=== PATIENT | male | born 1960 | race African-American/Black ===

== ENCOUNTER → 2017-10-17 | Outpatient (CLI) | payer OTHER ==
[~2017-10-17] VITALS: Ht 172.7 cm; Wt 112.2 kg
[~2017-10-17] MED LIST: ALPR0.255 PO; AMLO-512 PO; ASPI81TA33 PO; CARV6.2579 PO; CLOP75 PO; FLUO-191 PO; FURO40SO4 PO; PANT40TA25 PO; POTA8TAB4 PO; RANO500T3 PO
[2017-10-17 14:46] VITALS: BP 135/88
== END | disposition home or self-care (01) ==
LOC: SRCNTR 14:27
PROVIDERS: ATTEND Internal Medicine Clinical Cardiac Electrophysiology
DX: I11.0 Hypertensive heart disease with heart failure (principal); I50.9 Heart failure, unspecified; I25.10 Atherosclerotic heart disease of native coronary artery without angina pectoris; G89.4 Chronic pain syndrome; E78.00 Pure hypercholesterolemia, unspecified; Z79.82 Long term (current) use of aspirin; Z95.810 Presence of automatic (implantable) cardiac defibrillator
CPT/HCPCS: G0463

== ENCOUNTER → 2017-12-12 | Outpatient (CLI) | payer OTHER ==
[~2017-12-12] VITALS: Ht 172.7 cm; Wt 112.5 kg
[2017-12-12 14:18] VITALS: BP 116/73
== END | disposition home or self-care (01) ==
LOC: SRCNTR 14:09
PROVIDERS: ATTEND Internal Medicine Clinical Cardiac Electrophysiology
DX: Z45.018 Encounter for adjustment and management of other part of cardiac pacemaker (principal)
CPT/HCPCS: 93288; G0463

== ENCOUNTER 2018-03-15 10:11 | Day surgery (SDC) | payer OTHER ==
[~2018-03-15] VITALS: Ht 172.7 cm; Wt 114.5 kg
[~2018-03-15 10:11] MED LIST changes: -ASPI81TA33 PO; +ASPI81TA87 PO; +SODIUM CHLORIDE 0.9% 1,000 ML IV ONE
[2018-03-15] MEDS ORDERED: FentaNYL CITRATE-PF 100 MCG/2 ML VIAL IVP ONE (10:12)
[2018-03-15] MEDS ORDERED: MIDAZOLAM HCL 2 MG/2 ML VIAL IVP ONE (10:12)
[2018-03-15] MEDS ORDERED: CLINDAMYCIN PHOS 150 MG/ML 4 ML VIAL ONE (11:01)
[2018-03-15] MEDS ORDERED: SODIUM CHLORIDE 0.9% 100 ML ONE (11:01)
[2018-03-15] MEDS ORDERED: PROPOFOL 1000 MG/ISO-OSM 200 ML IV ONE (11:01)
[2018-03-15 11:05] LABS: ANION GAP 9 mmol/L (8-16); CALCIUM, TOTAL 8.8 mg/dL (8.8-10.5); CARBON DIOXIDE 28 mmol/L (22-29); CHLORIDE 103 mmol/L (98-107); CREATININE 1.05 mg/dL (0.60-1.30); GLOMERULAR FILTR. RATE CALC > 60 mL/min (>60); GLUCOSE,RANDOM 96 mg/dL (70-110); SODIUM SERUM 140 mmol/L (136-145); UREA NITROGEN, BLOOD 13 mg/dL (7-18)
[2018-03-15] MEDS ORDERED: EZET10 PO (11:16)
[2018-03-15] MEDS ORDERED: MIRT15 PO (11:16)
[2018-03-15] MEDS ORDERED: DULO30CA2 PO (11:16)
[2018-03-15] MEDS ORDERED: AMLO-511 PO (11:16)
[2018-03-15] MEDS ORDERED: HALO10 PO (11:16)
[2018-03-15] MEDS ORDERED: CILO100T PO (11:16)
[2018-03-15] MEDS ORDERED: ATOR40TA28 PO (11:16)
[2018-03-15] MEDS ORDERED: CARV25 PO (11:16)
[2018-03-15] MEDS ORDERED: DOXE10 PO (11:16)
[2018-03-15] MEDS ORDERED: DIPH25TA19 PO (11:16)
[2018-03-15] MEDS ORDERED: TRAZ-147 PO (11:16)
[2018-03-15] MEDS ORDERED: CLOP75 PO (11:16)
[2018-03-15 11:26] LABS: BAND NEUTROPHILS % (MANUAL) 0 % (0-5)
[2018-03-15 11:27] LABS: PROTHROMBIN TIME 10.7 SEC (9.4-11.6)
[2018-03-15] MEDS ORDERED: LIDOCAINE HCL/PF 1% 30 ML VIAL ONE ×2 (11:35→12:46)
[2018-03-15] MEDS ORDERED: SODIUM BICARBONATE 50 MEQ/50 ML VIAL ONE (11:35)
[2018-03-15] MEDS ORDERED: 0.9% SODIUM CHLORIDE 10 ML SYRINGE IVP ONE ×3 (11:35→12:10)
[2018-03-15 11:36] LABS: HEMATOCRIT 42.8 % (41-53); HEMOGLOBIN 14.6 g/dL (13.5-17.5); MEAN CORPUSCULAR HEMOGLOBIN 30.1 pg (26.0-34.0); MEAN CORPUSCULAR HGB CONC 34.2 G/dL (31.0-37.0); MEAN CORPUSCULAR VOLUME 88 fL (80-100); PLATELET COUNT (AUTO) 208 K/uL (150-450); RED BLOOD CELL COUNT(AUTO) 4.86 MIL/uL (4.50-5.90); RED CELL DISTRIBUTION WIDTH 13.1 % (11.5-14.5)
[2018-03-15] MEDS ORDERED: VANCOMYCIN HCL 1 GM/VIAL ONE ×2 (11:36→12:17)
[2018-03-15 11:52] VITALS: BP 120/81
[2018-03-15 12:03] LABS: EOSINOPHILS % (MANUAL) 2 % (1-6); LYMPHOCYTES % (MANUAL) 41 % (22-44); MONOCYTES % (MANUAL) 6 % (2-9); SEGMENTED NEUTROPHILS % 51 % (40-70)
[2018-03-15] MEDS ORDERED: BUPIVACAINE LIPOSOME/PF 1.3%-13.3MG/ML SUSPENSION 10 ML VIAL INJ ONE (12:30)
[2018-03-15] MEDS ORDERED: LIDOCAINE 1% 30 ML/SOD BICARB 8.4% 4 ML SQ ONE (12:39)
[2018-03-15] MEDS ORDERED: LIDOCAINE HCL/PF 1% 30 ML VIAL INJ ONE (12:39)
[2018-03-15] MEDS ORDERED: OxyCODONE HCL/ACETAMINOPHEN 10-325 MG TABLET PO ONE (13:00)
[2018-03-15] MEDS ORDERED: VANCOMYCIN HCL 1 GM/VIAL IRRIG ONE (13:00)
[2018-03-15] MEDS ORDERED: ACETAMINOPHEN 325 MG TABLET PO PRN (13:45)
[2018-03-15 13:50] VITALS: BP 142/85
== END 2018-03-15 17:30 | disposition home or self-care (01) ==
LOC: SDS 10:11
PROVIDERS: ATTEND Internal Medicine Clinical Cardiac Electrophysiology
DX: Z45.02 Encounter for adjustment and management of automatic implantable cardiac defibrillator (principal); I11.0 Hypertensive heart disease with heart failure; I50.22 Chronic systolic (congestive) heart failure; G89.4 Chronic pain syndrome; I25.10 Atherosclerotic heart disease of native coronary artery without angina pectoris; E78.00 Pure hypercholesterolemia, unspecified; M19.90 Unspecified osteoarthritis, unspecified site; F12.21 Cannabis dependence, in remission; Z95.810 Presence of automatic (implantable) cardiac defibrillator; Z87.891 Personal history of nicotine dependence; Z72.89 Other problems related to lifestyle; Z86.74 Personal history of sudden cardiac arrest; Z79.01 Long term (current) use of anticoagulants; Z88.1 Allergy status to other antibiotic agents; Z88.5 Allergy status to narcotic agent; Z88.8 Allergy status to other drugs, medicaments and biological substances; Z91.013 Allergy to seafood; Z79.899 Other long term (current) drug therapy
CPT/HCPCS: 33264; 36415; 80048; 83735; 85007; 85027; 85610; 85730; 88300; 93005; 93640; C1882; J0690; J2250; J2704; J3010; J3370; J3490 ×2; J7030; J7050; S0077; 33230; 33240

== ENCOUNTER → 2018-03-16 | Outpatient (CLI) | payer OTHER ==
[~2018-03-16] VITALS: Ht 172.7 cm; Wt 115.0 kg
[~2018-03-16] MED LIST changes: +AMLO-511 PO; +ATOR40TA28 PO; +CARV25 PO; +CILO100T PO; +DIPH25TA19 PO; +DOXE10 PO; +DULO30CA2 PO; +EZET10 PO; +HALO10 PO; +MIRT15 PO; -SODIUM CHLORIDE 0.9% 1,000 ML IV ONE; +TRAZ-147 PO
[2018-03-16 14:34] VITALS: BP 92/62
== END | disposition home or self-care (01) ==
LOC: SRCNTR 10:34
PROVIDERS: ATTEND Internal Medicine Clinical Cardiac Electrophysiology
DX: Z45.018 Encounter for adjustment and management of other part of cardiac pacemaker (principal)
CPT/HCPCS: G0463

== ENCOUNTER → 2018-03-23 | Outpatient (CLI) | payer OTHER ==
[~2018-03-23] MED LIST changes: -ALPR0.255 PO; -AMLO-512 PO; -ASPI81TA87 PO; -CARV6.2579 PO; -FLUO-191 PO; -FURO40SO4 PO; -PANT40TA25 PO; -POTA8TAB4 PO
[2018-03-23 13:05] VITALS: BP 119/67
== END | disposition home or self-care (01) ==
LOC: SRCNTR 12:54
PROVIDERS: ATTEND Internal Medicine Clinical Cardiac Electrophysiology
DX: I11.0 Hypertensive heart disease with heart failure (principal); I50.9 Heart failure, unspecified; E78.5 Hyperlipidemia, unspecified; G89.4 Chronic pain syndrome; Z95.810 Presence of automatic (implantable) cardiac defibrillator
CPT/HCPCS: G0463

== ENCOUNTER 2021-12-15 09:32 | Inpatient (IN) | payer OTHER ==
[2021-12-13 12:25] LABS: COVID AG,FIA SOURCE NASOPHARYNGEAL
[2021-12-13 12:32] LABS: BASOPHILS % (AUTO) 0.4 % (0.0-2.0); EOSINOPHILS % (AUTO) 0.9 % (1.0-6.0); HEMATOCRIT 38.5 % (41-53); HEMOGLOBIN 13.2 g/dL (13.5-17.5); LYMPHOCYTES # (AUTO) 1.3 K/uL (1.0-4.8); LYMPHOCYTES % (AUTO) 31.9 % (22.0-44.0); MEAN CORPUSCULAR HGB CONC 34.3 G/dL (31.0-37.0); MEAN CORPUSCULAR VOLUME 96 fL (80-100); MONOCYTES # (AUTO) 0.5 K/uL (0.1-1.0); MONOCYTES % (AUTO) 13.1 % (2.0-9.0); NEUTROPHILS # (AUTO) 2.3 K/uL (1.8-7.7); NEUTROPHILS % (AUTO) 53.7 % (40.0-70.0); PLATELET COUNT (AUTO) 228 K/uL (150-450); RED CELL DISTRIBUTION WIDTH 13.4 % (11.5-14.5)
[2021-12-13 12:39] LABS: ANION GAP 7 mmol/L (8-16); CALCIUM, TOTAL 8.9 mg/dL (8.8-10.5); CARBON DIOXIDE 30 mmol/L (22-29); CHLORIDE 106 mmol/L (98-107); CREATININE 1.04 mg/dL (0.60-1.30); GLOMERULAR FILTR. RATE CALC > 60 mL/min (>60); GLUCOSE,RANDOM 96 mg/dL (70-110); POTASSIUM 4.6 mmol/L (3.5-5.1); SODIUM SERUM 143 mmol/L (136-145); UREA NITROGEN, BLOOD 15 mg/dL (7-18)
[2021-12-13 12:42] LABS: INR 1.1 (0.9-1.1); PROTHROMBIN TIME 11.6 SEC (9.4-11.6)
[2021-12-13 12:45] LABS: ALANINE AMINOTRANSFERASE 42 U/L (12-78); ALBUMIN 3.7 g/dL (3.4-5.0); ALKALINE PHOSPHATASE 64 U/L (46-116); ASPARTATE AMINOTRANSFERASE 25 U/L (15-37); BILIRUBIN,TOTAL 0.6 mg/dL (0.1-1.0); TOTAL PROTEIN, SERUM 7.3 g/dL (6.4-8.2)
[2021-12-15] VITALS (17 sets, daily range): BP systolic 104–176; BP diastolic 60–94
[~2021-12-15] VITALS: Ht 172.7 cm; Wt 93.9 kg
[~2021-12-15 09:32] MED LIST changes: +AMLO-257 PO; -AMLO-511 PO; -CLOP75 PO; +CLOP75TA60 PO; -DULO30CA2 PO; +DULO30CA89 PO; -EZET10 PO; +EZET10TA57 PO; +MIRT-89 PO; -MIRT15 PO; +SACU1TAB PO; +SODIUM CHLORIDE 0.9% 1,000 ML IV ONE; -TRAZ-147 PO; +TRAZ-257 PO
[2021-12-15] MEDS ORDERED: RIVA10TA PO (10:17)
[2021-12-15] MEDS ORDERED: SACU1TAB4 PO (11:20)
[2021-12-15] MEDS ORDERED: ICOS1CAP PO (11:20)
[2021-12-15] MEDS ORDERED: NITR6.5C19 PO (11:20)
[2021-12-15] MEDS ORDERED: POTA8TAB71 PO (11:20)
[2021-12-15] MEDS ORDERED: LIDOCAINE/PF 1% 30 ML VIAL ONE ×2 (12:24→14:40)
[2021-12-15] MEDS ORDERED: IOHEXOL 300 MG/ML 50 ML VIAL ONE ×3 (12:24→14:40)
[2021-12-15] MEDS ORDERED: SODIUM BICARBONATE 50 MEQ/50 ML VIAL ONE ×2 (12:24→14:40)
[2021-12-15] MEDS ORDERED: HEPARIN SODIUM 1000 UNITS/NS 1,000 ML ONE (12:24)
[2021-12-15] MEDS ORDERED: IOHEXOL 300 MG/ML 150 ML VIAL ONE ×3 (12:24→14:56)
[2021-12-15] MEDS ORDERED: IOHEXOL 300 MG/ML 100 ML VIAL ONE (12:24)
[2021-12-15] MEDS ORDERED: MIDAZOLAM HCL 2 MG/2 ML VIAL ONE ×5 (12:30→14:51)
[2021-12-15] MEDS ORDERED: FentaNYL CITRATE PF 100 MCG/2 ML VIAL ONE ×2 (12:30→12:56)
[2021-12-15] MEDS ORDERED: VERAPAMIL HCL 2.5 MG/ML 2 ML VIAL ONE (12:43)
[2021-12-15] MEDS ORDERED: DiphenhydrAMINE HCL 50 MG/ML VIAL ONE (12:45)
[2021-12-15] MEDS ORDERED: FentaNYL CITRATE PF 100 MCG/2 ML VIAL IVP ONE ×3 (13:00)
[2021-12-15] MEDS ORDERED: LIDOCAINE 1% 30 ML/SOD BICARB 8.4% 4 ML SQ ONE (13:00)
[2021-12-15] MEDS ORDERED: MIDAZOLAM HCL 2 MG/2 ML VIAL IVP ONE ×4 (13:00→15:00)
[2021-12-15] MEDS ORDERED: IOHEXOL 300 MG/ML 150 ML VIAL IARTER ONE (13:00)
[2021-12-15] MEDS ORDERED: HEPARIN SODIUM 1000 UNITS/NS 1,000 ML IARTER ONE (13:00)
[2021-12-15] MEDS ORDERED: HEPARIN SODIUM 2,000 UNITS in HEPARIN SODIUM 1000 UNITS/NS 1,000 ML IARTER ONE (13:00)
[2021-12-15] MEDS ORDERED: IOHEXOL 300 MG/ML 50 ML VIAL IARTER ONE (13:00)
[2021-12-15] MEDS ORDERED: HEPARIN SODIUM,PORCINE 5,000 UNITS/ML VIAL IVP ONE ×2 (13:15→15:45)
[2021-12-15] MEDS ORDERED: ADENOSINE 3 MG/ML 2 ML VIAL ONE (13:28)
[2021-12-15] MEDS ORDERED: NITROGLYCERIN/D5W 50 MG/250 ML IV BOTTLE ICOR ONE (13:45)
[2021-12-15] MEDS ORDERED: DiphenhydrAMINE HCL 50 MG/ML VIAL IVP ONE (14:00)
[2021-12-15] MEDS ORDERED: SODIUM CHLORIDE 0.9% 1,000 ML IV ONE (14:15)
[2021-12-15] MEDS ORDERED: CARVEDILOL 6.25 MG TABLET PO ONE (14:15)
[2021-12-15] MEDS ORDERED: ASPIRIN 81 MG CHEWABLE TABLET PO ONE (14:15)
[2021-12-15] MEDS ORDERED: ACETAMINOPHEN 325 MG TABLET PO PRN ×2 (14:15→16:45)
[2021-12-15] MEDS ORDERED: HYDROmorphone 2 MG/ML VIAL IVP PRN (14:15)
[2021-12-15] MEDS ORDERED: OxyCODONE HCL/ACETAMINOPHEN 10-325 MG TABLET PO PRN (14:15)
[2021-12-15] MEDS ORDERED: CLOPIDOGREL BISULFATE 75 MG TABLET PO ONE (14:15)
[2021-12-15] MEDS ORDERED: NITROGLYCERIN 400 MCG/SUBLINGUAL SPRAY 4.9 GM BOTTLE SL ONE (14:20)
[2021-12-15] MEDS ORDERED: CLOPIDOGREL BISULFATE 75 MG TABLET ONE (14:21)
[2021-12-15] MEDS ORDERED: ASPIRIN 81 MG CHEWABLE TABLET ONE (14:21)
[2021-12-15] MEDS ORDERED: HydrALAZINE HCL 20 MG/ML VIAL ONE (14:25)
[2021-12-15] MEDS ORDERED: MORPHINE SULFATE 2 MG/ML SYRINGE ONE ×2 (14:25→14:59)
[2021-12-15] MEDS ORDERED: HydrALAZINE HCL 20 MG/ML VIAL IVP ONE (14:45)
[2021-12-15] MEDS ORDERED: NITROGLYCERIN 0.4 MG SUBLINGUAL TABLET #25 SL ONE (14:45)
[2021-12-15] MEDS ORDERED: MORPHINE SULFATE 2 MG/ML SYRINGE IVP ONE ×2 (14:45→15:45)
[2021-12-15] MEDS ORDERED: NITROGLYCERIN 400 MCG/SUBLINGUAL SPRAY 4.9 GM BOTTLE SL PRN (15:00)
[2021-12-15] MEDS ORDERED: HEPARIN SODIUM 25000 UNITS/D5W 250 ML IV ONE (15:04)
[2021-12-15] MEDS ORDERED: EPTIFIBATIDE 2 MG/ML 10 ML VIAL IVP ONE ×2 (15:10→15:45)
[2021-12-15] MEDS ORDERED: TICAGRELOR 90 MG TABLET ONE (15:13)
[2021-12-15] MEDS: EPTIFIBATIDE 75 MG/ISO-OSM 100 ML IV SCH ×2 (15:22→20:44)
[2021-12-15] MEDS ORDERED: TICAGRELOR 90 MG TABLET PO ONE (15:45)
[2021-12-15] MEDS ORDERED: ZOLPIDEM TARTRATE 5 MG TABLET PO PRN (16:00)
[2021-12-15] MEDS ORDERED: MORPHINE SULFATE 2 MG/ML SYRINGE IVP PRN (16:45)
[2021-12-15] MEDS ORDERED: ONDANSETRON HCL 4 MG/2 ML VIAL IVP PRN (16:45)
[2021-12-15] MEDS ORDERED: HEPARIN SODIUM,PORCINE 5,000 UNITS/ML VIAL IVP PRN ×2 (19:30)
[2021-12-15] MEDS ORDERED: HEPARIN SODIUM 25000 UNITS/D5W 250 ML IV PRN (19:30)
[2021-12-15] MEDS: DOCUSATE SODIUM 100 MG CAPSULE PO SCH (20:39)
[2021-12-15] MEDS: NITROGLYCERIN 2% (1 GM=INCH) PACKET TP SCH (20:39)
[2021-12-15] MEDS: FAMOTIDINE 20 MG TABLET PO SCH (20:40)
[2021-12-15] MEDS: RANOLAZINE 500 MG ER TABLET PO SCH (20:40)
[2021-12-15] MEDS: SACUBITRIL/VALSARTAN 24-26 MG TABLET PO SCH (21:00)
[2021-12-16] VITALS (7 sets, daily range): BP systolic 92–161; BP diastolic 52–83
[2021-12-16] MEDS: NITROGLYCERIN 2% (1 GM=INCH) PACKET TP SCH ×5 (05:55→23:47)
[2021-12-16 06:16] LABS: BASOPHILS % (AUTO) 0.3 % (0.0-2.0); EOSINOPHILS % (AUTO) 1.3 % (1.0-6.0); HEMATOCRIT 36.3 % (41-53); HEMOGLOBIN 12.4 g/dL (13.5-17.5); LYMPHOCYTES # (AUTO) 1.8 K/uL (1.0-4.8); LYMPHOCYTES % (AUTO) 28.9 % (22.0-44.0); MEAN CORPUSCULAR HEMOGLOBIN 33.3 pg (26.0-34.0); MEAN CORPUSCULAR HGB CONC 34.1 G/dL (31.0-37.0); MEAN CORPUSCULAR VOLUME 97 fL (80-100); MONOCYTES # (AUTO) 0.8 K/uL (0.1-1.0); MONOCYTES % (AUTO) 12.3 % (2.0-9.0); NEUTROPHILS # (AUTO) 3.5 K/uL (1.8-7.7); NEUTROPHILS % (AUTO) 57.2 % (40.0-70.0); PLATELET COUNT (AUTO) 191 K/uL (150-450); RED BLOOD CELL COUNT(AUTO) 3.72 MIL/uL (4.50-5.90); RED CELL DISTRIBUTION WIDTH 13.1 % (11.5-14.5)
[2021-12-16 06:56] LABS: ANION GAP 9 mmol/L (8-16); CALCIUM, TOTAL 8.3 mg/dL (8.8-10.5); CARBON DIOXIDE 28 mmol/L (22-29); CHLORIDE 109 mmol/L (98-107); CREATINE KINASE, TOTAL ONLY 109 U/L (39-308); GLOMERULAR FILTR. RATE CALC > 60 mL/min (>60); GLUCOSE,RANDOM 90 mg/dL (70-110); SODIUM SERUM 146 mmol/L (136-145); UREA NITROGEN, BLOOD 9 mg/dL (7-18)
[2021-12-16] MEDS ORDERED: ENOXAPARIN SODIUM 40 MG/0.4 ML PF SYRINGE SQ SCH (09:00)
[2021-12-16] MEDS: DOCUSATE SODIUM 100 MG CAPSULE PO SCH ×2 (09:00→20:52)
[2021-12-16] MEDS: SACUBITRIL/VALSARTAN 24-26 MG TABLET PO SCH ×2 (09:10→20:52)
[2021-12-16] MEDS: FAMOTIDINE 20 MG TABLET PO SCH ×2 (09:10→20:52)
[2021-12-16] MEDS: ATORVASTATIN CALCIUM 40 MG TABLET PO SCH (09:11)
[2021-12-16] MEDS: RANOLAZINE 500 MG ER TABLET PO SCH ×2 (09:11→20:53)
[2021-12-16] MEDS: TICAGRELOR 90 MG TABLET PO SCH ×2 (09:11→20:52)
[2021-12-16] MEDS: ASPIRIN 81 MG CHEWABLE TABLET PO SCH (09:11)
[2021-12-16] MEDS ORDERED: MORPHINE SULFATE 4 MG/ML SYRINGE ONE (15:12)
[2021-12-16] MEDS ORDERED: MORPHINE SULFATE 2 MG/ML SYRINGE IVP ONE (15:15)
[2021-12-16] MEDS ORDERED: MORPHINE SULFATE 4 MG/ML SYRINGE IVP ONE (16:30)
[2021-12-16] MEDS: CARVEDILOL 6.25 MG TABLET PO SCH (20:52)
[2021-12-16] MEDS: ENOXAPARIN SODIUM 40 MG/0.4 ML PF SYRINGE SQ SCH (20:53)
[2021-12-17] VITALS: BP 137/68
[2021-12-17 04:00] VITALS: BP 135/58
[2021-12-17 05:52] LABS: BASOPHILS % (AUTO) 0.6 % (0.0-2.0); EOSINOPHILS % (AUTO) 1.5 % (1.0-6.0); HEMATOCRIT 34.7 % (41-53); LYMPHOCYTES # (AUTO) 1.5 K/uL (1.0-4.8); LYMPHOCYTES % (AUTO) 29.5 % (22.0-44.0); MEAN CORPUSCULAR HEMOGLOBIN 33.2 pg (26.0-34.0); MEAN CORPUSCULAR HGB CONC 34.6 G/dL (31.0-37.0); MEAN CORPUSCULAR VOLUME 96 fL (80-100); MONOCYTES # (AUTO) 0.8 K/uL (0.1-1.0); MONOCYTES % (AUTO) 15.2 % (2.0-9.0); NEUTROPHILS # (AUTO) 2.6 K/uL (1.8-7.7); NEUTROPHILS % (AUTO) 53.2 % (40.0-70.0); PLATELET COUNT (AUTO) 176 K/uL (150-450); RED BLOOD CELL COUNT(AUTO) 3.61 MIL/uL (4.50-5.90); RED CELL DISTRIBUTION WIDTH 13.3 % (11.5-14.5)
[2021-12-17] MEDS: NITROGLYCERIN 2% (1 GM=INCH) PACKET TP SCH (05:52)
[2021-12-17 06:32] LABS: ALANINE AMINOTRANSFERASE 27 U/L (12-78); ALBUMIN 2.9 g/dL (3.4-5.0); ALKALINE PHOSPHATASE 51 U/L (46-116); ANION GAP 9 mmol/L (8-16); ASPARTATE AMINOTRANSFERASE 15 U/L (15-37); BILIRUBIN,TOTAL 0.7 mg/dL (0.1-1.0); CALCIUM, TOTAL 8.5 mg/dL (8.8-10.5); CARBON DIOXIDE 30 mmol/L (22-29); CHLORIDE 108 mmol/L (98-107); CREATININE 1.02 mg/dL (0.60-1.30); GLOMERULAR FILTR. RATE CALC > 60 mL/min (>60); GLUCOSE,RANDOM 109 mg/dL (70-110); POTASSIUM 4.5 mmol/L (3.5-5.1); SODIUM SERUM 147 mmol/L (136-145); TOTAL PROTEIN, SERUM 6.3 g/dL (6.4-8.2); UREA NITROGEN, BLOOD 8 mg/dL (7-18)
[2021-12-17 08:00] VITALS: BP 121/71
[2021-12-17] MEDS: DOCUSATE SODIUM 100 MG CAPSULE PO SCH (08:05)
[2021-12-17] MEDS: ENOXAPARIN SODIUM 40 MG/0.4 ML PF SYRINGE SQ SCH (08:05)
[2021-12-17] MEDS: ASPIRIN 81 MG CHEWABLE TABLET PO SCH (08:05)
[2021-12-17] MEDS: SACUBITRIL/VALSARTAN 24-26 MG TABLET PO SCH (08:05)
[2021-12-17] MEDS: FAMOTIDINE 20 MG TABLET PO SCH (08:06)
[2021-12-17] MEDS: ATORVASTATIN CALCIUM 40 MG TABLET PO SCH (08:06)
[2021-12-17] MEDS: CARVEDILOL 6.25 MG TABLET PO SCH (08:06)
[2021-12-17] MEDS: RANOLAZINE 500 MG ER TABLET PO SCH (08:06)
[2021-12-17] MEDS: TICAGRELOR 90 MG TABLET PO SCH (08:07)
[2021-12-17] MEDS ORDERED: CARV6 PO (10:01)
[2021-12-17] MEDS ORDERED: TICA90TA PO (10:01)
== END 2021-12-17 13:00 | disposition home or self-care (01) | DRG 175 ==
LOC: CATHLAB 09:32 → ICU 16:55
PROVIDERS: ADMIT Internal Medicine; ATTEND Internal Medicine
PROC: 5A02210 Assistance with Cardiac Output using Balloon Pump, Continuous (ICD-10-PCS; principal; 2021-12-15)
PROC: 027034Z Dilation of Coronary Artery, One Artery with Drug-eluting Intraluminal Device, Percutaneous Approach (ICD-10-PCS; 2021-12-15)
PROC: 02C03ZZ Extirpation of Matter from Coronary Artery, One Artery, Percutaneous Approach (ICD-10-PCS; 2021-12-15)
PROC: 4A023N7 Measurement of Cardiac Sampling and Pressure, Left Heart, Percutaneous Approach (ICD-10-PCS; 2021-12-15)
PROC: B2111ZZ Fluoroscopy of Multiple Coronary Arteries using Low Osmolar Contrast (ICD-10-PCS; 2021-12-15)
PROC: B2151ZZ Fluoroscopy of Left Heart using Low Osmolar Contrast (ICD-10-PCS; 2021-12-15)
PROC: 4A033BC Measurement of Arterial Pressure, Coronary, Percutaneous Approach (ICD-10-PCS; 2021-12-15)
PROC: B41F1ZZ Fluoroscopy of Right Lower Extremity Arteries using Low Osmolar Contrast (ICD-10-PCS; 2021-12-15)
PROC: 3E033PZ Introduction of Platelet Inhibitor into Peripheral Vein, Percutaneous Approach (ICD-10-PCS; 2021-12-15)
DX: T82.855A Stenosis of coronary artery stent, initial encounter (principal); I77.77 Dissection of artery of lower extremity; I21.3 ST elevation (STEMI) myocardial infarction of unspecified site; I50.9 Heart failure, unspecified; I11.0 Hypertensive heart disease with heart failure; T82.867A Thrombosis due to cardiac prosthetic devices, implants and grafts, initial encounter; E78.00 Pure hypercholesterolemia, unspecified; I25.119 Atherosclerotic heart disease of native coronary artery with unspecified angina pectoris; E78.5 Hyperlipidemia, unspecified; I25.5 Ischemic cardiomyopathy; Z20.822 Contact with and (suspected) exposure to COVID-19; Y83.8 Other surgical procedures as the cause of abnormal reaction of the patient, or of later complication, without mention of misadventure at the time of the procedure; Z88.8 Allergy status to other drugs, medicaments and biological substances; Z95.5 Presence of coronary angioplasty implant and graft; Z79.899 Other long term (current) drug therapy; Y92.89 Other specified places as the place of occurrence of the external cause
CPT/HCPCS: 0501T; 80048; 80053; 82550; 84484; 85025; 85610; 85730; 87081; 92920; 92928; 93005; G0378; J0153; J0360; J1200; J1327; J1644; J1650; J2250; J2270; J3010; J3490; J7030; Q9967; 36415-L1; 36415-TC; C9803; Z7610

== ENCOUNTER 2024-11-15 15:56 | Inpatient (IN) | payer OTHER ==
[~2024-11-15] VITALS: Ht 177.8 cm; Wt 91.2 kg
[~2024-11-15 15:56] MED LIST changes: -AMLO-257 PO; -CARV25 PO; +CARV6 PO; -CILO100T PO; -CLOP75TA60 PO; -DIPH25TA19 PO; -DOXE10 PO; -DULO30CA89 PO; -EZET10TA57 PO; -HALO10 PO; -MIRT-89 PO; +RANO500T27 PO; -RANO500T3 PO; +RIVA10TA PO; -SODIUM CHLORIDE 0.9% 1,000 ML IV ONE; +TICA90TA PO; -TRAZ-257 PO
[2024-11-15 17:02] LABS: COVID AG,FIA SOURCE NASAL SWAB
[2024-11-15] MEDS ORDERED: ASPI-1444 PO (17:02)
[2024-11-15] MEDS ORDERED: CILO50TA2 PO (17:02)
[2024-11-15] MEDS ORDERED: RANO10005 PO (17:02)
[2024-11-15] MEDS ORDERED: SACU1TAB7 PO (17:02)
[2024-11-15] MEDS ORDERED: NITR0.4T50 SL (17:02)
[2024-11-15] MEDS ORDERED: OMEP20CA12 PO (17:02)
[2024-11-15] MEDS ORDERED: FURO20TA4 PO (17:02)
[2024-11-15] MEDS ORDERED: ISOS120T14 PO (17:02)
[2024-11-15] MEDS ORDERED: FERR-72 PO (17:02)
[2024-11-15] MEDS ORDERED: ICOS1CAP2 PO (17:02)
[2024-11-15] MEDS ORDERED: POTA8CAP20 PO (17:02)
[2024-11-15] MEDS ORDERED: FAMO40TA7 PO (17:02)
[2024-11-15] MEDS ORDERED: CARV25TA32 PO (17:02)
[2024-11-15] MEDS ORDERED: ATOR40TA71 PO (17:02)
[2024-11-15] MEDS ORDERED: EVOL140P3 SQ (17:02)
[2024-11-15] MEDS: ACETAMINOPHEN 500 MG TABLET PO ONE (17:08)
[2024-11-15 17:27] LABS: INFLUENZA TYPE A NEGATIVE FOR TYPE A (NEGATIVE); INFLUENZA TYPE B NEGATIVE FOR TYPE B (NEGATIVE)
[2024-11-15 17:30] LABS: SARS-COV2 (COVID) ANTIGEN,FIA Negative (Negative)
[2024-11-15 17:47] LABS: BASOPHILS % (AUTO) 0.7 % (0.0-2.0); HEMATOCRIT 39.9 % (41-53); LYMPHOCYTES # (AUTO) 1.7 K/uL (1.0-4.8); LYMPHOCYTES % (AUTO) 37.5 % (22.0-44.0); MEAN CORPUSCULAR HEMOGLOBIN 31.8 pg (26.0-34.0); MEAN CORPUSCULAR HGB CONC 32.6 G/dL (31.0-37.0); MEAN CORPUSCULAR VOLUME 98 fL (80-100); MONOCYTES # (AUTO) 0.4 K/uL (0.1-1.0); MONOCYTES % (AUTO) 8.5 % (2.0-9.0); NEUTROPHILS # (AUTO) 2.3 K/uL (1.8-7.7); NEUTROPHILS % (AUTO) 51.3 % (40.0-70.0); PLATELET COUNT (AUTO) 199 K/uL (150-450); RED BLOOD CELL COUNT(AUTO) 4.09 MIL/uL (4.50-5.90); RED CELL DISTRIBUTION WIDTH 12.9 % (11.5-14.5); WHITE BLOOD COUNT (AUTO) 4.5 K/uL (4.5-11.0)
[2024-11-15 17:54] LABS: ANION GAP 7 mmol/L (8-16); CALCIUM, TOTAL 8.5 mg/dL (8.8-10.5); CARBON DIOXIDE 29 mmol/L (22-29); CHLORIDE 103 mmol/L (98-107); CREATININE 1.04 mg/dL (0.60-1.30); GLOMERULAR FILTR. RATE CALC > 60 mL/min (>60); GLUCOSE,RANDOM 91 mg/dL (70-110); POTASSIUM 3.9 mmol/L (3.5-5.1); SODIUM SERUM 139 mmol/L (136-145); UREA NITROGEN, BLOOD 15 mg/dL (7-18)
[2024-11-15 18:02] LABS: TROPONIN I-HIGH SENSITIVITY 15 ng/L (<76)
[2024-11-15 18:11] LABS: B-TYPE NATRIURETIC PEPTIDE 165 pg/mL (0-100)
[2024-11-15 18:18] LABS: CREATINE KINASE, TOTAL ONLY 77 U/L (39-308)
[2024-11-15] MEDS ORDERED: ACETAMINOPHEN 325 MG TABLET PO PRN (18:45)
[2024-11-15] MEDS ORDERED: ALBUTEROL SULFATE 2.5 MG/0.5 ML NEB SOLUTION NEB PRN (18:45)
[2024-11-15] MEDS ORDERED: NITROGLYCERIN 0.4 MG SUBLINGUAL TABLET #25 SL PRN ×2 (18:45→22:30)
[2024-11-15] MEDS ORDERED: IPRATROPIUM BROMIDE 0.5 MG/2.5 ML NEB SOLUTION NEB PRN (18:45)
[2024-11-15] MEDS: ASPIRIN 81 MG CHEWABLE TABLET PO ONE (19:03)
[2024-11-15 20:40] LABS: TROPONIN I-HIGH SENSITIVITY 17 ng/L (<76)
[2024-11-15] MEDS: DOCUSATE SODIUM 100 MG CAPSULE PO SCH (21:00)
[2024-11-15 21:56] VITALS: BP 145/99; PULSE 74; RESP 20; TEMP 98.4; O2SAT 100
[2024-11-15] MEDS ORDERED: SACU1TAB4 PO (22:09)
[2024-11-15] MEDS ORDERED: TICA90TA PO (22:09)
[2024-11-15] MEDS ORDERED: ZINC220T4 PO (22:09)
[2024-11-15] MEDS ORDERED: [UNRECOGNIZED DRUG - CODE] PO (22:09)
[2024-11-15] MEDS: ONDANSETRON HCL 4 MG/2 ML VIAL IVP PRN (22:21)
[2024-11-15] MEDS: MORPHINE SULFATE 2 MG/ML SYRINGE IVP PRN (22:22)
[2024-11-15] MEDS ORDERED: OMEPRAZOLE 20 MG CAPSULE PO PRN (22:30)
[2024-11-15] MEDS ORDERED: POTASSIUM CHLORIDE 8 MEQ ER TABLET PO PRN (22:30)
[2024-11-16] VITALS (8 sets, daily range): BP systolic 102–149; BP diastolic 53–93; PULSE 50–78; RESP 18–19; TEMP 97.4–98.8; O2SAT 96–100
[2024-11-16 00:11] LABS: TROPONIN I-HIGH SENSITIVITY 17 ng/L (<76)
[2024-11-16] MEDS: HEPARIN SODIUM,PORCINE 5,000 UNITS/ML VIAL SQ SCH (00:11)
[2024-11-16] MEDS: CILOSTAZOL 100 MG TABLET PO SCH (05:30)
[2024-11-16 06:01] LABS: BASOPHILS % (AUTO) 0.3 % (0.0-2.0); EOSINOPHILS % (AUTO) 2.2 % (1.0-6.0); HEMATOCRIT 38.1 % (41-53); HEMOGLOBIN 12.5 g/dL (13.5-17.5); LYMPHOCYTES # (AUTO) 2.2 K/uL (1.0-4.8); LYMPHOCYTES % (AUTO) 41.7 % (22.0-44.0); MEAN CORPUSCULAR HEMOGLOBIN 31.9 pg (26.0-34.0); MEAN CORPUSCULAR HGB CONC 32.9 G/dL (31.0-37.0); MEAN CORPUSCULAR VOLUME 97 fL (80-100); MONOCYTES # (AUTO) 0.6 K/uL (0.1-1.0); MONOCYTES % (AUTO) 10.7 % (2.0-9.0); NEUTROPHILS # (AUTO) 2.3 K/uL (1.8-7.7); NEUTROPHILS % (AUTO) 45.1 % (40.0-70.0); PLATELET COUNT (AUTO) 194 K/uL (150-450); RED BLOOD CELL COUNT(AUTO) 3.93 MIL/uL (4.50-5.90); RED CELL DISTRIBUTION WIDTH 12.8 % (11.5-14.5); WHITE BLOOD COUNT (AUTO) 5.2 K/uL (4.5-11.0)
[2024-11-16 06:12] LABS: ANION GAP 7 mmol/L (8-16); CALCIUM, TOTAL 8.5 mg/dL (8.8-10.5); CARBON DIOXIDE 27 mmol/L (22-29); CHLORIDE 106 mmol/L (98-107); CREATININE 1.01 mg/dL (0.60-1.30); GLOMERULAR FILTR. RATE CALC > 60 mL/min (>60); GLUCOSE,RANDOM 86 mg/dL (70-110); POTASSIUM 3.8 mmol/L (3.5-5.1); SODIUM SERUM 140 mmol/L (136-145); UREA NITROGEN, BLOOD 12 mg/dL (7-18)
[2024-11-16] MEDS ORDERED: ASPIRIN 81 MG CHEWABLE TABLET PO SCH (08:00)
[2024-11-16] MEDS: TICAGRELOR 90 MG TABLET PO SCH (08:28)
[2024-11-16] MEDS: ATORVASTATIN CALCIUM 40 MG TABLET PO SCH (08:29)
[2024-11-16] MEDS: FERROUS SULFATE 325 MG EC TABLET PO SCH (08:29)
[2024-11-16] MEDS: CARVEDILOL 25 MG TABLET PO SCH (08:29)
[2024-11-16] MEDS: ASPIRIN 81 MG DR TABLET PO SCH (08:29)
[2024-11-16] MEDS: ZINC SULFATE 220 MG CAPSULE PO SCH (08:29)
[2024-11-16] MEDS: SACUBITRIL/VALSARTAN 49-51 MG TABLET PO SCH (08:29)
[2024-11-16] MEDS: FUROSEMIDE 20 MG/2 ML VIAL IVP SCH (08:30)
[2024-11-16] MEDS: RANOLAZINE 500 MG ER TABLET PO SCH (08:33)
[2024-11-16] MEDS ORDERED: [UNRECOGNIZED DRUG - OTHER] PO SCH (09:00)
[2024-11-16 15:43] LABS: PH,URINE DRUG SCREEN 6.5 (5.0-8.0)
[2024-11-16 15:55] LABS: ALCOHOL, URINE DRUG SCREEN NEGATIVE (NEGATIVE); AMPHET/METH SCREEN,URINE NEGATIVE (NEGATIVE); BARBITURATE SCREEN, URINE NEGATIVE (NEGATIVE); BENZODIAZEPINES SCREEN,URINE NEGATIVE (NEGATIVE); CANNABINOID SCREEN,URINE POSITIVE (NEGATIVE); COCAINE SCREEN,URINE POSITIVE (NEGATIVE); METHADONE SCREEN, URINE NEGATIVE (NEGATIVE); OPIATE SCREEN,URINE POSITIVE (NEGATIVE); PHENCYCLIDINE SCREEN,URINE NEGATIVE (NEGATIVE)
[2024-11-16 18:59] LABS: TROPONIN I-HIGH SENSITIVITY 14 ng/L (<76)
[2024-11-16] MEDS: FAMOTIDINE 20 MG TABLET PO SCH (20:24)
[2024-11-16 23:57] LABS: TROPONIN I-HIGH SENSITIVITY 14 ng/L (<76)
[2024-11-17 05:35] VITALS: BP 119/63; PULSE 56; RESP 18; TEMP 98.4; O2SAT 99
[2024-11-17 08:07] VITALS: BP 132/59; PULSE 65; RESP 18; TEMP 98.3; O2SAT 96
[2024-11-17 12:07] VITALS: BP 103/77; PULSE 77; RESP 18; TEMP 98.2; O2SAT 96
[2024-11-17 16:02] VITALS: BP 109/78; PULSE 82; RESP 18; TEMP 98.6; O2SAT 97
[2024-11-17 19:40] VITALS: BP 135/76; PULSE 73; RESP 18; TEMP 98.9; O2SAT 100
[2024-11-17 23:51] VITALS: BP 108/67; PULSE 70; RESP 18; TEMP 99.1; O2SAT 93
[2024-11-18 06:00] VITALS: BP 117/46; PULSE 65; RESP 19; TEMP 98.1; O2SAT 98
[2024-11-18 08:00] VITALS: BP 97/60; PULSE 68; RESP 18; TEMP 98.2; O2SAT 98
== END 2024-11-18 09:55 | disposition home or self-care (01) | DRG 194 ==
LOC: EMS 15:56 → EDH 18:34 → 5N 21:50
PROVIDERS: ADMIT Internal Medicine; ATTEND Internal Medicine
DX: I11.0 Hypertensive heart disease with heart failure (principal); D64.9 Anemia, unspecified; I50.23 Acute on chronic systolic (congestive) heart failure; I25.5 Ischemic cardiomyopathy; I25.10 Atherosclerotic heart disease of native coronary artery without angina pectoris; Z20.822 Contact with and (suspected) exposure to COVID-19; E78.00 Pure hypercholesterolemia, unspecified; M17.12 Unilateral primary osteoarthritis, left knee; G89.4 Chronic pain syndrome; Z95.810 Presence of automatic (implantable) cardiac defibrillator; I25.2 Old myocardial infarction; Z87.891 Personal history of nicotine dependence
CPT/HCPCS: 71045; 80048; 80307; 82550; 83735; 83880; 84484; 85025; 87804; 93005; 93306; 99285; J1644; J1940; J2270; J2405; 36415-L1; 36415-TC